=== PATIENT | female | born 1990 | race Caucasian/White ===

== ENCOUNTER 2017-05-11 06:58 | Emergency (ER) | payer MEDICAID ==
[2017-05-11 07:29] VITALS: RESP 18; O2SAT 98
--- NOTE | 2017-05-11 08:02 | ED PDOC ---
HPI: General Adult Time Seen by Provider: 05/11/17 07:17 Chief Complaint (Nursing): Flu-like Symptoms Chief Complaint (Provider): throat pain, back pain History Per: Patient History/Exam Limitations: no limitations Onset/Duration Of Symptoms: Days Have you had recent travel within the past 21 days to any of the following countries: [place], [place], [place] or [place]?: No Additional History Per: Patient Additional Complaint(s): 26yo female, with no past medical history, presents to ED for evaluation of bodyaches and throat pain, present for the past 4 days. Patient reports the pain was initially diffuse but now is concentrated in her back and is worsened with bending or moving. She denies any associated dysuria, bladder or bowel dysfunction, weakness, numbness, tingling, shortness of breath. The patient also denies taking any medication for her pain; she offers no other medical complaints. Past Medical History Reviewed: Historical Data, Nursing Documentation, Vital Signs Vital Signs: Last Vital Signs Temp 98 F 05/11/17 07:26 Pulse 76 05/11/17 07:26 Resp 18 05/11/17 07:26 BP Pulse Ox 98 05/11/17 08:16 - Medical History PMH: Gastritis - Surgical History Surgical History: Appendectomy - Family History Family History: States: No Known Family Hx - Social History Current smoker - smoking cessation education provided: No Alcohol: None Drugs: Denies - Home Medications Home Medications: Ambulatory Orders Medication Instructions Recorded Lansoprazole [Prevacid] 1 tab PO DAILY #30 cap 01/06/15 Tramadol Hydrochloride [Tramadol] 50 mg PO Q6H PRN #20 tab 01/06/15 - Allergies Allergies/Adverse Reactions: Allergies Allergy/AdvReac Type Severity Reaction Status Date / Time No Known Allergies Allergy Verified 01/05/15 21:53 Review of Systems ROS Statement: Except As Marked, All Systems Reviewed And Found Negative Constitutional: Negative for: Fever, Chills ENT: Positive for: Throat Pain Respiratory: Negative for: Shortness of Breath Genitourinary Female: Negative for: Dysuria, Frequency, Incontinence, Hematuria Musculoskeletal: Positive for: Neck Pain, Back Pain Neurological: Positive for: Headache Physical Exam - Reviewed Nursing Documentation Reviewed: Yes Vital Signs Reviewed: Yes - Physical Exam Appears: Positive for: Non-toxic, Uncomfortable Head Exam: Positive for: ATRAUMATIC, NORMAL INSPECTION, NORMOCEPHALIC Skin: Positive for: Normal Color Eye Exam: Positive for: EOMI, PERRL ENT: Positive for: Normal ENT Inspection Neck: Positive for: Supple Cardiovascular/Chest: Positive for: Regular Rate, Rhythm Respiratory: Positive for: Normal Breath Sounds. Negative for: Respiratory Distress Gastrointestinal/Abdominal: Positive for: Normal Exam, Soft. Negative for: Tenderness Back: Positive for: Muscle Spasm, Other (diffuse paraspinal tenderness). Negative for: L CVA Tenderness, R CVA Tenderness Extremity: Positive for: Normal ROM. Negative for: Deformity, Swelling Neurologic/Psych: Positive for: Alert, Oriented. Negative for: Motor/Sensory Deficits - ECG O2 Sat by Pulse Oximetry: 98 (Ra) Pulse Ox Interpretation: Normal Medical Decision Making Medical Decision Making: Time: 757 Impression: Viral syndrome, tonsilitis, musculoskeletal pain Plan: -- Rapid flu -- rapid strep -- Motrin 600 mg PO -- Flexeril 10 mg PO Reassess Scribe Attestation: Documented by Yocasta Watson acting as a scribe for Damaso Watts MD. Provider Attestation: All medical record entries made by the Scribe were at my direction and personally dictated by me. I have reviewed the chart and agree that the record accurately reflects my personal performance of the history, physical exam, medical decision making, and the department course for this patient. I have also personally directed, reviewed, and agree with the discharge instructions and disposition. Disposition - Clinical Impression Clinical Impression: Back pain, Viral syndrome - Patient ED Disposition Is Patient to be Admitted: No Doctor Will See Patient In The: Office Counseled Patient/Family Regarding: Studies Performed, Diagnosis, Need For Followup - Disposition Referrals: Michaela Preston MD [Primary Care Provider] - Disposition: Routine/Home Disposition Time: 10:37 Condition: GOOD Additional Instructions: Take motrin for pain. Follow up with your PCP in 2-3 days. Instructions: Viral Syndrome (ED), Back Pain (ED)
[2017-05-11 11:09] VITALS: BP 128/78; PULSE 78; TEMP 97
== END 2017-05-11 11:09 | disposition home or self-care (01) ==
LOC: H.ER 06:58
DX: B34.9 Viral infection, unspecified (principal)